=== PATIENT | male | born 1970 | race Caucasian/White ===

== ENCOUNTER 2016-12-05 05:25 | Day surgery (SDC) | payer OTHER ==
[~2016-12-05] VITALS: Ht 180.3 cm; Wt 106.6 kg
[2016-12-05 07:15] VITALS: BP 148/95; Ht 180.3 cm; Wt 106.6 kg
--- NOTE | 2016-12-05 10:45 | NUR ---
XRAY DONE IN PACU
--- NOTE | 2016-12-05 12:10 | NUR ---
1210--IV DC'D, PT UP TO DRESS AT THIS TIME. FAREED RN
--- NOTE | 2016-12-05 12:30 | NUR ---
1230--DISCHARGE INSTRUCTIONS GIVEN, PT VERBALIZES UNDERSTANDING. PT OFF UNIT VIA [facility]ADA. FAREED GARCIA
--- NOTE | 2016-12-19 09:50 | OP ---
PATIENT NAME: LILA SIMPSON MEDICAL RECORD: [id number] :72 LOCATION:[facility] ADMISSION DATE: SURGEON: KARI GONZALEZ DPM DATE OF OPERATION: 12/05/2016 PREOPERATIVE DIAGNOSIS: Arthritis, left first metatarsophalangeal joint. POSTOPERATIVE DIAGNOSIS: Arthritis, left first metatarsophalangeal joint. PROCEDURE: Left first MPJ fusion. ANESTHESIA: Local with IV sedation. HEMOSTASIS: Left thigh tourniquet at 350 mmHg. PREOPERATIVE DETAILS: The patient was taken to the OR and placed on the operating table in a supine position. This was followed by induction of general anesthesia and infiltration of local anesthetic. The left extremity was then prepped and draped in the usual aseptic technique followed by exsanguination of the extremity and inflation of tourniquet. A 15 blade was used to create an incision from the mid shaft to the first metatarsal near the IPJ of the hallux. The incision deepened down through subcutaneous tissue to the MPJ where a longitudinal capsulotomy was made. The head of the first metatarsal and base of proximal phalanx were delivered. There was significant osteoarthritis and chondromalacia and spur formation on the dorsal aspect of the head of the first metatarsal as well as significant arthritis of the base of the hallux. This was removed with a rongeur and a bone saw and then utilizing a guidewire, the head of the first metatarsal was reamed with the cup reamer. Then, a K-wire was placed in the hallux and a cone reamer was used to ream the base of the proximal phalanx. At this time, the fixation and the wound was flushed copiously. The joint was then temporarily fixated with K-wire and a 5-hole plate with 1 hole being across the joint was used to fixate the joint with excellent rigid internal fixation and bone purchase with the screws and excellent alignment. The wound was flushed. The deep tissue was closed with 2-0 Vicryl, the subcutaneous tissue with 4-0 Rapide and the skin was closed with 4-0 Rapide in a subcuticular technique followed by Dermabond, Adaptic, 4 x 4 and Conform were used to dress the wound followed by application of a modified Dill compression dressing. Tourniquet was deflated. POSTOPERATIVE DETAILS: The patient tolerated the procedure well and left the OR with vital signs stable and vascular status at preoperative levels. The patient was transferred for recovery per anesthesia in stable condition. TRANSINT:[id number] Voice Confirmation ID: [id number] DOCUMENT ID: [id number] KARI GONZALEZ DPM at 0950 CC: [id number] DICTATION DATE: 12/05/16 1033 WELL LOGGING MUD ANALYSIS CAPTAIN: 12/05/16 1058 [facility] 12/05/[address] [id number]
== END 2016-12-05 12:30 | disposition home or self-care (01) ==
LOC: D.OPS 05:25 → D.PAN 08:15 → D.OPS 08:15 → D.PAN 08:30 → D.OPS 12:30
DX: M13.872 Other specified arthritis, left ankle and foot (principal)

== ENCOUNTER 2019-11-09 06:17 | Outpatient (CLI) | payer MEDICAID ==
[~2019-11-09] VITALS: Ht 180.3 cm; Wt 111.4 kg
[2019-11-09 06:50] LABS: BASOPHILS 0.7 % (0-2); EOSINOPHILS 6.2 % (0-7); HEMATOCRIT 44.3 % (42.0-54.0); HEMOGLOBIN 15.2 g/dL (13.5-17.5); IMMATURE GRANULOCYTES 0.1 % (0-5); LYMPHOCYTES 30.7 % (15-50); MCH 32.1 pg (26.0-34.0); MCHC 34.3 g/dL (31.0-37.0); MCV 93.5 fL (80.0-100.0); MONOCYTES 10.6 % (2-11); NEUTROPHILS 51.7 % (40-80); PLATELET COUNT 325 10x3/uL (130-400); RBC 4.74 10x6/uL (4.20-6.10); RDW 12.9 % (11.5-14.5); WBC 7.1 10x3/uL (4.8-10.8)
[2019-11-09 06:58] LABS: CALC OSMOLALITY 282 mosm/kg (275-300); CALCIUM 8.8 mg/dL (8.5-10.1); CARBON DIOXIDE 27.9 mmol/L (21.0-32.0); CHLORIDE - SERUM 106 mmol/L (98-107); GLUCOSE 99 mg/dL (74-106); POTASSIUM - SERUM 3.9 mmol/L (3.5-5.1); SODIUM 141 mmol/L (136-145); UREA NITROGEN 17 mg/dL (7-18); eGFR NON AFRICAN AMERICAN 85 mL/min (90-120)
[2019-11-09 07:00] LABS: INR 0.93 (0.85-1.17)
[2019-11-09 07:01] LABS: APTT 32.8 SECONDS (22.8-39.4)
[2019-11-09 07:48] VITALS: Ht 180.3 cm; Wt 111.4 kg
--- NOTE | 2019-11-09 13:15 | NUR ---
0950 VITAL SIGNS BEING RECORDED ON POST PROCEDURE FORM SHEET AND PART OF THE PAPER CHART. 1055 BANDAID CDI. TISSUE SOFT AROUND BANDAID. NO NECK SWELLING. TRACHEA MIDLINE. 1100 IV DC'D. CATHETER TIP INTACT. NO BLEEDING AT SITE. BANDAID APPLIED.
== END 2019-11-09 11:05 | disposition home or self-care (01) ==
LOC: D.CT 06:17
PROVIDERS: General Practice; ATTEND Family Medicine
DX: R59.0 Localized enlarged lymph nodes (principal)

== ENCOUNTER 2019-12-11 07:08 | Day surgery (SDC) | payer OTHER ==
[~2019-12-11] VITALS: Ht 180.3 cm; Wt 108.9 kg
[2019-12-11 08:26] VITALS: BP 137/86; Ht 180.3 cm; Wt 108.9 kg
--- NOTE | 2019-12-11 13:38 | NUR ---
1250 MEDICATED FOR PAIN. EATING WELL. INSTRUCTIONS GIVEN TO WITH RX. 1300 IV REMOVED
--- NOTE | 2019-12-14 12:28 | OP ---
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 PROCEDURE: Direct laryngoscopy with biopsy, tonsillectomy, esophagoscopy. SURGEON: Kera Landa MD ANESTHESIA: General orotracheal. BLOOD LOSS: Less than 5 cc. SPECIMENS: Multiple biopsies of the right lateral piriform sinus; biopsies of the right and left base of tongue, right and left tonsils; and a biopsy of the nasopharynx. COMPLICATIONS: None. DISPOSITION: Recovery stable. FINDINGS: The tonsils were both small firm, not particularly remarkable. Base of tongue was soft with no obvious lesions. Nasopharynx was clean. There was some granular area a little bit friable on the right lateral piriform not extending towards the apex, but at about the level of the arytenoid on that right side that I took biopsies of. Whole area was about 1 cm, slightly abnormal, but not particularly suspicious. DESCRIPTION OF PROCEDURE: He was brought to the operating room and placed in supine position, sedated and intubated by anesthesia. Eyes were taped. Table was turned to 90 degrees. Head drapes applied. He was positioned for endoscopy. First using a headlight, the oral cavity and oropharynx was examined. Upper and lower gingival buccal sulcus, the palate, the base of the tongue, the floor of the mouth, lateral pharyngeal brian, and tonsils were all carefully inspected, examined, and palpated. Tonsils were a little firm, but nothing particularly suspicious was seen. Plastic upper tooth guard was placed and Kleinsasser and J laryngoscope was used to examine the lateral pharyngeal brian, posterior pharyngeal wall, base of tongue, vallecula, hypopharynx, the epiglottis, supraglottic larynx, postcricoid area, piriforms, false cords, and the larynx. Really, the only thing seen was a little friability in an area in the upper lateral piriform sinus on the right side. I used a 2-mm upbiting cup forceps to take 4 biopsies of that, the whole area was about a centimeter in diameter, so that took most of that area and biopsy, it really was a superficial, but a little erythematous. The laryngoscope was then removed and the base of the tongue was then examined carefully. Again with a Kleinsasser laryngoscope looking at the base of the tongue, nothing could be seen or palpated, but I took 4-mm upbiting cup forceps and took 4 good deep biopsies of both sides of the base of the tongue, those were both sent separately. The laryngoscope was then removed. Anna-Chilo mouth gag was then carefully OPERATIVE REPORT [id number] TATIANALILA JAIMES HERNANDO inserted and elevated. Red rubber catheter was placed to the right side of the nose into the pharynx and grasped with tonsil clamp to retract the soft palate. Using a mirror, the nasopharynx was examined. Posterior aspect of the palate, the choanae, posterior nasal cavity, and nasopharynx was all really unremarkable. I used a straight 4-mm cup forceps through both sides of the nose and took a large biopsy superiorly and inferiorly of the nasopharynx on both sides. Those were sent as a separate specimen as well. There was a little bit of bleeding that was controlled with suction cautery and then the red rubber catheter was let down and removed. The right tonsil was then grasped at superior pole with a straight Allis clamp. Spatula tip cautery on a setting of 8 was used to dissect out the tonsil along its capsule preserving the anterior and posterior tonsillar pillar. The left tonsil was removed in the same fashion. No lesions were identified. Both sides of the nose and the pharynx were irrigated with saline. The tonsillar fossae were agitated. Suction cautery on a setting of 18 was used to control minimal oozing from the tonsils. With the field completely clean and dry, the Anna-Chilo mouth gag was let down and removed. Then, a cervical esophagoscope was inserted again with the plastic tooth guard easily into the postcricoid area. The arytenoid postcricoid area and esophageal inlet were normal. This was advanced to about 25 cm ted. The esophagus was completely clean and unremarkable in appearance. No biopsies were taken. The esophagoscope was removed. Plastic tooth guard was removed. He was repositioned, he was awakened, extubated, and transported to recovery in good condition. No complications. TRANSINT:[id number] Voice Confirmation ID: [id number] DOCUMENT ID: [id number] KERA LANDA MD at 1228 CC: [id number] DICTATION DATE: 12/11/19 1134 MACHINE SETUP OPERATOR: 12/11/19 1245 [facility] 12/11/19 [place] [id number] [place] [id number]
--- NOTE | 2019-12-14 12:28 | HP ---
PATIENT: LILA CHERRY MEDICAL RECORD: [id number] ACCOUNT: [id number] [facility] : 72 ADMISSION DATE: 12/11/19 PCP: ELIZABETH PEREZ MD HISTORY AND PHYSICAL EXAMINATION PREOPERATIVE HISTORY AND PHYSICAL HISTORY OF PRESENT ILLNESS: Mr. Cherry is 49 years old. He was sent over by Dr. Head. He has a right cervical node positive for squamous cell carcinoma on biopsy. A PET scan only shows that node. A CT and PET scan have been negative for other lesions. ENT exam is negative as well. He is being admitted for direct laryngoscopy, esophagoscopy, tonsillectomy and biopsies of nasopharynx base of the tongue to try to identify the source of unknown primary. PAST MEDICAL HISTORY: Includes hypertension. PAST SURGICAL HISTORY: Includes left knee and foot surgery, right wrist and shoulder surgery. CURRENT MEDICATIONS: None. ALLERGIES: No known drug allergies. PHYSICAL EXAMINATION: GENERAL: Healthy-appearing. FACE: Normal, symmetric, no lesions. EYES: Sclerae and conjunctivae are normal. EARS: Canals and TMs normal. NOSE: No mass, polyps or drainage. ORAL CAVITY AND OROPHARYNX: Normal. NECK: Right level 2/3 lymph node, nontender. CHEST: Clear. CARDIOVASCULAR: Regular rate and rhythm, no murmur. EXTREMITIES: Normal. IMPRESSION: Unknown primary squamous cell carcinoma with metastatic to right neck. PLAN: Panendoscopy and tonsillectomy. TRANSINT:[id number] Voice Confirmation ID: [id number] DOCUMENT ID: [id number] KERA LANDA MD at 1228 CC: [id number] DICTATION DATE: 12/10/19 1449 DIPLOMATIC INTERPRETER/TRANSLATOR: 12/10/19 1525 [facility] 12/11/19 [place] [id number] [place] [id number]
== END 2019-12-11 13:20 | disposition home or self-care (01) ==
LOC: D.OPS 07:08 → D.PAN 10:05 → D.OPS 10:05
PROVIDERS: ATTEND Otolaryngology
DX: C76.0 Malignant neoplasm of head, face and neck (principal); I10 Essential (primary) hypertension